=== PATIENT | female | born 1980 | race Caucasian/White ===

== ENCOUNTER 2017-02-28 12:47 | Outpatient (CLI) | payer BC ==
--- NOTE | 2017-03-02 17:17 | NM ---
NUCLEAR MEDICINE IODINE 131 BODY SCAN: CLINICAL HISTORY: Status post total thyroidectomy, malignant neoplasm of thyroid gland. No prior imaging comparisons are available. RADIOPHARMACEUTICAL: 4.59 mCi Iodine 131 PO, with imaging performed at 48 hour delay. FINDINGS: On the whole body scan, there is prominent activity localizing to the expected thyroid bed with prob able associated star artifact from radioiodine uptake. Expected physiologic bowel activity is seen, as well as generalized low level uptake in the body wall soft tissues. IMPRESSION: Prominent radiotracer activity localizing to the thyroid bed, which could either relate to uptake wi thin a mild degree of residual thyroid, status post thyroidectomy, or alternatively thyroid malignan cy with associated iodine uptake. Consider soft tissue neck CT scan for further anatomic delineation . POS: [facility]
== END 2017-02-28 12:48 | disposition home or self-care (01) ==
LOC: NM 12:47
PROVIDERS: ATTEND Internal Medicine Endocrinology, Diabetes & Metabolism
DX: C73 Malignant neoplasm of thyroid gland (principal); Z90.89 Acquired absence of other organs
CPT/HCPCS: 36415; 78018; 84703; A9517

== ENCOUNTER 2017-04-25 13:09 | Outpatient (CLI) | payer BC ==
--- NOTE | 2017-04-25 16:46 | NM ---
NUCLEAR MEDICINE THYROID ABLATION I-131 THERAPY 04/25/17 HISTORY: Patient is post total thyroidectomy secondary to papillary thyroid cancer. Thyroid uptake and scan on 03/02/17 demonstrated prominent radiotracer activity localizing to the thyroid bed on a study obtain ed on 02/28/17. Thyroid ablation therapy was requested. A dose of 100 millicuries I-131 was requested . RADIOPHARMACEUTICAL: 98.7 millicuries I-131, p.o. FINDINGS: The indications, risks, and precautions of I-131 thyroid ablation therapy was discussed with the munira ent. Patient verbalized that she understood the risks and complications as well as understood the nec essary precautions post I-131 therapy. The patient was then administered 98.7 millicuries of I-131, p .o., and two separate tablets were administered for this total dose. Patient was briefly monitored in the Nuclear Medicine Department for 30 minutes with appropriate hydration performed during this time . Patient was then given an information pack and written precautionary measures to follow upon discha rge. IMPRESSION: Post nuclear medicine thyroid ablation therapy with administration of 98.7 millicuries of I-131, p.o. Patient is to be scheduled for followup scan in 7 to 10 days. POS: [facility]
== END 2017-04-25 13:10 | disposition home or self-care (01) ==
LOC: NM 13:09
PROVIDERS: ATTEND Internal Medicine Endocrinology, Diabetes & Metabolism
DX: C73 Malignant neoplasm of thyroid gland (principal)
CPT/HCPCS: 36415; 79005; 84703; A9517

== ENCOUNTER 2017-05-02 13:01 | Outpatient (CLI) | payer BC ==
--- NOTE | 2017-05-02 16:27 | NM ---
NUCLEAR MEDICINE IODINE 131 BODY SCAN: HISTORY: Post-ablation imaging. COMPARISON: Nuclear medicine iodine 131 body scan 02/28/17. FINDINGS: Using the post-ablation images 1 week after oral administration of 98.7 mCi of Iodine 131. There is radiotracer activity within the neck of the affected thyroidectomy bed. Normal physiologic activity is seen as well as in the body wall and soft tissues. IMPRESSION: Localized radiotracer uptake within the neck corresponding to either residual thyroid tissue or malig nant cells. No new areas of thyroid uptake relative to the comparison examination. POS: [facility]
== END 2017-05-02 13:02 | disposition home or self-care (01) ==
LOC: NM 13:01
PROVIDERS: ATTEND Internal Medicine Endocrinology, Diabetes & Metabolism
DX: C73 Malignant neoplasm of thyroid gland (principal)
CPT/HCPCS: 78018

== ENCOUNTER 2019-01-27 12:29 | Outpatient (CLI) | payer BC ==
--- NOTE | 2019-01-27 14:00 | MMO ---
Bilateral MAMMO Bilat Screen [facility]. CLINICAL HISTORY: Patient is 38 years old and is seen for screening. The patient has no family history of breast cancer. The patient has a history of thyroid cancer at age 34. VIEWS: The views performed were: bilateral craniocaudal with tomosynthesis and bilateral mediolateral oblique with tomosynthesis. This study has been interpreted with the assistance of computer-aided detection. MAMMOGRAM FINDINGS: There are scattered fibroglandular densities. There are no suspicious masses, suspicious calcifications, or new areas of architectural distortion. IMPRESSION: THERE IS NO MAMMOGRAPHIC EVIDENCE OF MALIGNANCY. A ROUTINE FOLLOW-UP MAMMOGRAM IN 1 YEAR IS RECOMMENDED. THE RESULTS OF THIS EXAM WERE SENT TO THE PATIENT. ACR BI-RADS Category 1 - Negative MAMMOGRAPHY NOTE: 1. A negative mammogram report should not delay a biopsy if a dominant of clinically suspicious mass is present. 2. Approximately 10% to 15% of breast cancers are not detected by mammography. 3. Adenosis and dense breasts may obscure an underlying neoplasm. Reported by: BREANA HERNDON MD Electonically Signed: [id number]
== END 2019-01-27 12:30 | disposition home or self-care (01) ==
LOC: BICMAMMO 12:29
PROVIDERS: ATTEND Nurse Practitioner Women's Health
DX: Z12.31 Encounter for screening mammogram for malignant neoplasm of breast (principal); Z85.850 Personal history of malignant neoplasm of thyroid
CPT/HCPCS: 77063; 77067

== ENCOUNTER 2020-03-10 07:03 | Outpatient (CLI) | payer BC ==
--- NOTE | 2020-03-10 07:43 | ULT ---
Thyroid ultrasound: 03/10/2020 COMPARISON: None HISTORY: Thyroidectomy 3 years ago, increasing thyroglobulin levels TECHNIQUE: Multiplanar grayscale sonographic imaging of the thyroid bed obtained. FINDINGS: Provided imaging demonstrates no evidence for discrete thyroid tissue. No focal mass lesion or adenopathy seen in the post thyroidectomy bed. IMPRESSION: Unremarkable focused ultrasound of the thyroidectomy bed.
== END 2020-03-10 07:04 | disposition home or self-care (01) ==
LOC: BICULT 07:03
PROVIDERS: ATTEND Internal Medicine Endocrinology, Diabetes & Metabolism
DX: R94.6 Abnormal results of thyroid function studies (principal); R05 Cough; Z90.89 Acquired absence of other organs
CPT/HCPCS: 76536

== ENCOUNTER 2021-12-14 07:54 | Outpatient (CLI) | payer BC | END 2021-12-14 07:55 | disposition home or self-care (01) | LOC: BICMAMMO 07:54 | PROVIDERS: ATTEND Family Medicine | DX: Z12.31 Encounter for screening mammogram for malignant neoplasm of breast (principal); Z85.850 Personal history of malignant neoplasm of thyroid | CPT/HCPCS: 77063; 77067 ==

== ENCOUNTER 2023-01-25 15:09 | Outpatient (CLI) | payer BC | END 2023-01-25 15:10 | disposition home or self-care (01) | LOC: BICMAMMO 15:09 | PROVIDERS: ATTEND Nurse Practitioner Women's Health | DX: Z12.31 Encounter for screening mammogram for malignant neoplasm of breast (principal); Z85.850 Personal history of malignant neoplasm of thyroid | CPT/HCPCS: 77063; 77067 ==